=== PATIENT | male | born 1955 | race Caucasian/White ===

== ENCOUNTER 2021-01-16 15:09 | Inpatient (IN) | payer BC ==
[~2021-01-16] VITALS: Ht 185.4 cm; Wt 100.0 kg
[~2021-01-16 15:09] MED LIST: ATOR80TA PO; CARV3.12 PO; CLOP75TA15 PO; INSU100V46 SQ; INSU100V9 SQ; METF-438 PO; NITR0.4T51 SL
[2021-01-16] MEDS ORDERED: normal saline 1000ML IV soln IVB ONE ×2 (15:30→17:15)
[2021-01-16] MEDS ORDERED: dexamethasone sod phosphate 10mg/ml inj IV STA (15:41)
[2021-01-16] MEDS ORDERED: dexamethasone inj 8 MG in normal saline 50ml IV soln 50 ML IV ONE (16:00)
[2021-01-16 16:19] LABS: BASOPHILS % (AUTO) 0.1 % (0-1); EOSINOPHILS % (AUTO) 0.1 % (0-6); HEMATOCRIT 43.3 % (42.0-52.0); HEMOGLOBIN 14.2 g/dl (14.0-17.9); LYMPHOCYTES # (AUTO) 0.2 X10'3 (1.1-4.8); LYMPHOCYTES % (AUTO) 4.3 % (21-51); MEAN CORPUSCULAR HEMOGLOBIN 30.3 PG (27.0-31.0); MEAN CORPUSCULAR HGB CONC 32.9 g/dL (33.0-36.5); MEAN CORPUSCULAR VOLUME 91.9 FL (78-98); MEAN PLATELET VOLUME 8.4 FL (7.4-10.4); MONOCYTES # (AUTO) 0.5 X10'3 (0-0.9); MONOCYTES % (AUTO) 10.4 % (2-12); NEUTROPHILS # (AUTO) 4.4 X10'3 (1.8-7.7); NEUTROPHILS % (AUTO) 85.1 % (42-75); PLATELET COUNT 137 X10'3 (140-440); RED BLOOD COUNT 4.71 X10'6 (4.70-6.10); RED CELL DISTRIBUTION WIDTH 15.2 % (11.5-14.5); WHITE BLOOD COUNT 5.1 X10'3 (4.5-11.0)
[2021-01-16 16:22] LABS: ALANINE AMINOTRANSFERASE 39 U/L (12-78); ALBUMIN 3.2 G/DL (3.4-5.0); ALBUMIN/GLOBULIN RATIO 0.8 (1.1-1.5); ALKALINE PHOSPHATASE 85 IU/L (46-116); ANION GAP 7 (8-16); ASPARTATE AMINO TRANSFERASE 25 U/L (10-37); BILIRUBIN,TOTAL 0.2 MG/DL (0.1-1.0); BLOOD UREA NITROGEN 32 MG/DL (7-18); BUN/CREATININE RATIO 28.8 (5.4-32.0); CALCIUM 7.6 MG/DL (8.5-10.1); CHLORIDE 101 MMOL/L (99-107); CREATININE 1.11 MG/DL (0.60-1.10); GLUCOSE 259 MG/DL (70-104); POTASSIUM 5.3 MMOL/L (3.5-5.1); SODIUM 134 MMOL/L (135-145); TOTAL CARBON DIOXIDE 25.6 MMOL/L (24-32); eGFR 66 ML/MIN
[2021-01-16] MEDS ORDERED: azithromycin/NS 500mg/250ml 250 ML IV ONE (16:25)
[2021-01-16] MEDS ORDERED: CefTRIAXone 2gm/D5W 50ml BAG 50 ML IV ONE (16:25)
[2021-01-16] MEDS ORDERED: acetaminophen 325mg tablet PO STA (16:25)
[2021-01-16 16:29] LABS: C-REACTIVE PROTEIN 6.91 MG/DL (0.0-0.5)
[2021-01-16 16:32] LABS: D-DIMER 0.46 MG/L FEU (0-0.50)
[2021-01-16 17:10] LABS: ABG BASE EXCESS -5.6 mmol/L (-2.0-2.0); ABG HCO3 23.8 mmol/L (22.0-26.0); ABG OXYGEN SATURATION 98.3 % (94-97); ABG PCO2 (T) 64.5 mmHg (35.0-48.0); ABG PO2 (T) 181.1 mmHg (75.0-100.0); ALLEN'S TEST POSITIVE; FCOHb 0.5 % (0.0-3.9); FLOW 10 L/min; FMetHb 0.3 % (0.0-1.5); FO2Hb 97.5 % (94-97); TOTAL HEMOGLOBIN 13.6 G/dl (14.0-18.0)
[2021-01-16] MEDS ORDERED: magnesium 4gm in 100ml NS 100 ML IV PRN (17:10)
[2021-01-16] MEDS ORDERED: enoxaparin 40mg/0.4ml syringe SUBCUT SCH (17:10)
[2021-01-16] MEDS ORDERED: magnesium Cl slow-release 64mg tablet PO PRN (17:10)
[2021-01-16] MEDS ORDERED: magnesium 2GM in 50ml NS 50 ML IV PRN (17:10)
[2021-01-16] MEDS ORDERED: ondansetron/PF 4mg/2ml inj IV PRN (17:10)
[2021-01-16] MEDS: normal saline 1000ml 1,000 ML IV SCH (19:17)
[2021-01-16] MEDS: enoxaparin 40mg/0.4ml syringe SUBCUT SCH (19:30)
--- NOTE | 2021-01-16 20:00 | NUR ---
Recieved pt in bed hob elevated 40 degrees . o2 sats 93 % on bi pap . plan of care updated . pt currently asking for a warm blanket . Brought to bedside . Agree with head to toe assessment with RN AB. iv site patent without incident . will continue to monitor and reassess
--- NOTE | 2021-01-16 20:34 | NUR ---
pt daughter called to check on pt. gave an update.
[2021-01-16 22:05] LABS: ABG BASE EXCESS -6.5 mmol/L (-2.0-2.0); ABG HCO3 21.5 mmol/L (22.0-26.0); ABG OXYGEN SATURATION 93.7 % (94-97); ABG PCO2 (T) 52.2 mmHg (35.0-48.0); ALLEN'S TEST POSITIVE; FCOHb 0.6 % (0.0-3.9); FMetHb 0.3 % (0.0-1.5); FO2Hb 92.9 % (94-97); PATIENT TEMPERATURE 36.7; RESPIRATORY RATE 20 b/min; TOTAL HEMOGLOBIN 13.6 G/dl (14.0-18.0)
[2021-01-16] MEDS ORDERED: enoxaparin 30mg/0.3ml syringe SUBCUT ONE (22:20)
--- NOTE | 2021-01-17 01:00 | NUR ---
PT ON HOSPITAL BED FROM [facility]
[2021-01-17] MEDS: methylPREDNISolone sod succ 125mg/2ml vial IV SCH ×3 (01:18→17:01)
[2021-01-17] MEDS: acetaminophen 325mg tablet PO PRN ×2 (01:33→22:58)
[2021-01-17 04:43] LABS: BASOPHILS % (AUTO) 0.2 % (0-1); EOSINOPHILS % (AUTO) 0 % (0-6); HEMATOCRIT 41.2 % (42.0-52.0); HEMOGLOBIN 13.6 g/dl (14.0-17.9); LYMPHOCYTES # (AUTO) 0.3 X10'3 (1.1-4.8); MEAN CORPUSCULAR HEMOGLOBIN 30.8 PG (27.0-31.0); MEAN CORPUSCULAR HGB CONC 33.1 g/dL (33.0-36.5); MEAN CORPUSCULAR VOLUME 93.1 FL (78-98); MEAN PLATELET VOLUME 8.3 FL (7.4-10.4); MONOCYTES # (AUTO) 0.2 X10'3 (0-0.9); MONOCYTES % (AUTO) 5.3 % (2-12); NEUTROPHILS # (AUTO) 3.6 X10'3 (1.8-7.7); NEUTROPHILS % (AUTO) 86.5 % (42-75); PLATELET COUNT 123 X10'3 (140-440); RED BLOOD COUNT 4.42 X10'6 (4.70-6.10); WHITE BLOOD COUNT 4.2 X10'3 (4.5-11.0)
[2021-01-17 05:03] LABS: ANION GAP 10 (8-16); BLOOD UREA NITROGEN 32 MG/DL (7-18); BUN/CREATININE RATIO 30.8 (5.4-32.0); C-REACTIVE PROTEIN 5.86 MG/DL (0.0-0.5); CALCIUM 7.1 MG/DL (8.5-10.1); CHLORIDE 105 MMOL/L (99-107); CREATININE 1.04 MG/DL (0.60-1.10); GLUCOSE 213 MG/DL (70-104); MAGNESIUM 1.9 MG/DL (1.5-2.4); POTASSIUM 5.1 MMOL/L (3.5-5.1); SODIUM 138 MMOL/L (135-145); TOTAL CARBON DIOXIDE 23.1 MMOL/L (24-32); eGFR 71 ML/MIN
[2021-01-17 05:04] LABS: D-DIMER 0.38 MG/L FEU (0-0.50)
[2021-01-17] MEDS: normal saline 1000ml 1,000 ML IV SCH (06:01)
[2021-01-17] MEDS: enoxaparin 40mg/0.4ml syringe SUBCUT SCH (09:28)
--- NOTE | 2021-01-17 10:00 | NUR ---
TOLERATING BIBAP WELL. NO ACUTE DISTRESS NOTED AT THIS TIME
--- NOTE | 2021-01-17 13:50 | NUR ---
PT WAS PLACED ON 6L/MIN NC TO EAT LUNCH. TOLERATING WELL. 02 SAT 94-95%
--- NOTE | 2021-01-17 13:54 | NUR ---
PT ON 90-92% WHILE EATING
[2021-01-17 15:36] LABS: ABG BASE EXCESS -5.2 mmol/L (-2.0-2.0); ABG HCO3 21.2 mmol/L (22.0-26.0); ABG OXYGEN SATURATION 94.8 % (94-97); ABG PCO2 (T) 44.3 mmHg (35.0-48.0); ABG PO2 (T) 83.6 mmHg (75.0-100.0); ALLEN'S TEST POSITIVE; FCOHb 0.4 % (0.0-3.9); FLOW 6 L/min; FMetHb 0.3 % (0.0-1.5); FO2Hb 94.1 % (94-97); TOTAL HEMOGLOBIN 13.2 G/dl (14.0-18.0)
[2021-01-17] MEDS ORDERED: nitroGLYCERIN 0.4mg SUBLingual tab SL PRN (19:20)
--- NOTE | 2021-01-17 20:25 | NUR ---
Pts , jb, calling (from her room in this hospital). phone place din room and call connected to him. pt is awaiting ipa. is on hospital bed.
[2021-01-17] MEDS: clopidogrel 75mg tablet PO SCH (20:55)
[2021-01-17] MEDS: atorvastatin 20mg tablet PO SCH (20:56)
[2021-01-17] MEDS: carVEDilol 3.125mg tablet PO SCH (20:56)
[2021-01-18] MEDS: methylPREDNISolone sod succ 125mg/2ml vial IV SCH ×2 (01:57→08:42)
[2021-01-18 02:21] LABS: ALBUMIN 2.9 G/DL (3.4-5.0); ANION GAP 7 (8-16); BLOOD UREA NITROGEN 29 MG/DL (7-18); BUN/CREATININE RATIO 26.9 (5.4-32.0); C-REACTIVE PROTEIN 3.35 MG/DL (0.0-0.5); CALCIUM 7.4 MG/DL (8.5-10.1); CHLORIDE 106 MMOL/L (99-107); CREATININE 1.08 MG/DL (0.60-1.10); GLUCOSE 334 MG/DL (70-104); MAGNESIUM 1.9 MG/DL (1.5-2.4); POTASSIUM 4.8 MMOL/L (3.5-5.1); SODIUM 137 MMOL/L (135-145); TOTAL CARBON DIOXIDE 24.1 MMOL/L (24-32); eGFR 68 ML/MIN
[2021-01-18 02:35] LABS: BASOPHILS % (AUTO) 0.1 % (0-1); EOSINOPHILS % (AUTO) 0 % (0-6); HEMATOCRIT 36.9 % (42.0-52.0); HEMOGLOBIN 12.5 g/dl (14.0-17.9); LYMPHOCYTES # (AUTO) 0.3 X10'3 (1.1-4.8); LYMPHOCYTES % (AUTO) 4.1 % (21-51); MEAN CORPUSCULAR HEMOGLOBIN 30.9 PG (27.0-31.0); MEAN CORPUSCULAR VOLUME 91.1 FL (78-98); MEAN PLATELET VOLUME 8.5 FL (7.4-10.4); MONOCYTES # (AUTO) 0.7 X10'3 (0-0.9); MONOCYTES % (AUTO) 8.4 % (2-12); NEUTROPHILS # (AUTO) 7.5 X10'3 (1.8-7.7); NEUTROPHILS % (AUTO) 87.4 % (42-75); PLATELET COUNT 152 X10'3 (140-440); RED BLOOD COUNT 4.05 X10'6 (4.70-6.10); RED CELL DISTRIBUTION WIDTH 15.1 % (11.5-14.5); WHITE BLOOD COUNT 8.5 X10'3 (4.5-11.0)
[2021-01-18] MEDS ORDERED: glucagon, human recombinant 1mg kit SUBCUT PRN (07:50)
[2021-01-18] MEDS ORDERED: MESSAGE TO PHARMACY PO ONE (07:50)
[2021-01-18] MEDS ORDERED: dextrose 50%-water 50ml dispensing syringe IV PRN ×2 (07:50)
[2021-01-18] MEDS ORDERED: dextrose ORAL solution 15 GM/59 ML bottle PO PRN ×2 (07:50)
[2021-01-18] MEDS: clopidogrel 75mg tablet PO SCH (08:43)
[2021-01-18] MEDS: enoxaparin 40mg/0.4ml syringe SUBCUT SCH (08:43)
[2021-01-18] MEDS: carVEDilol 3.125mg tablet PO SCH ×2 (08:43→20:31)
[2021-01-18] MEDS: insulin Lispro (HumaLOG) vial - multi-dose SQ SCH ×2 (09:35→21:57)
--- NOTE | 2021-01-18 11:30 | NUR ---
Patient in room COVID 04. I have received report from ishmael BUI and had the opportunity to ask questions and assume patient care.
[2021-01-18 15:00] VITALS: BP 148/72
[2021-01-18] MEDS: methylPREDNISolone sod succ/PF 40mg inj. IV SCH (16:38)
[2021-01-18 18:00] VITALS: BP 134/78
--- NOTE | 2021-01-18 18:05 | NUR ---
Patient in room COVID 04. I have received report from danyell stahl and had the opportunity to ask questions and assume patient care.
--- NOTE | 2021-01-18 18:22 | NUR ---
Problems reprioritized. Patient report given, questions answered & plan of care reviewed with Edith Srivastava.
[2021-01-18] MEDS: atorvastatin 20mg tablet PO SCH (20:32)
[2021-01-18] MEDS: acetaminophen 325mg tablet PO PRN (20:47)
[2021-01-18] MEDS: insulin glargine (Lantus) pen - multi-dose SQ SCH (21:55)
[2021-01-18 22:00] VITALS: BP 120/80
[2021-01-19 02:00] VITALS: BP 128/57
[2021-01-19 06:00] VITALS: BP 146/79
--- NOTE | 2021-01-19 06:00 | NUR ---
Patient in room COVID 04. I have received report from Edith BUI and had the opportunity to ask questions and assume patient care.
[2021-01-19] MEDS: clopidogrel 75mg tablet PO SCH (08:03)
[2021-01-19] MEDS: carVEDilol 3.125mg tablet PO SCH ×2 (08:03→19:52)
[2021-01-19 08:38] LABS: BASOPHILS % (AUTO) 0 % (0-1); EOSINOPHILS % (AUTO) 0 % (0-6); HEMATOCRIT 43.4 % (42.0-52.0); HEMOGLOBIN 14.6 g/dl (14.0-17.9); LYMPHOCYTES # (AUTO) 0.3 X10'3 (1.1-4.8); MEAN CORPUSCULAR HEMOGLOBIN 30.5 PG (27.0-31.0); MEAN CORPUSCULAR HGB CONC 33.6 g/dL (33.0-36.5); MEAN CORPUSCULAR VOLUME 90.6 FL (78-98); MEAN PLATELET VOLUME 8.2 FL (7.4-10.4); MONOCYTES # (AUTO) 0.7 X10'3 (0-0.9); MONOCYTES % (AUTO) 6.6 % (2-12); NEUTROPHILS # (AUTO) 9.3 X10'3 (1.8-7.7); NEUTROPHILS % (AUTO) 90.4 % (42-75); PLATELET COUNT 217 X10'3 (140-440); RED BLOOD COUNT 4.79 X10'6 (4.70-6.10); RED CELL DISTRIBUTION WIDTH 15.2 % (11.5-14.5); WHITE BLOOD COUNT 10.2 X10'3 (4.5-11.0)
[2021-01-19 08:53] LABS: ALBUMIN 3.3 G/DL (3.4-5.0); ANION GAP 9 (8-16); BLOOD UREA NITROGEN 20 MG/DL (7-18); BUN/CREATININE RATIO 25.6 (5.4-32.0); C-REACTIVE PROTEIN 6.32 MG/DL (0.0-0.5); CHLORIDE 102 MMOL/L (99-107); CREATININE 0.78 MG/DL (0.60-1.10); GLUCOSE 239 MG/DL (70-104); MAGNESIUM 2.2 MG/DL (1.5-2.4); SODIUM 139 MMOL/L (135-145); TOTAL CARBON DIOXIDE 28.1 MMOL/L (24-32); eGFR > 90 ML/MIN
[2021-01-19] MEDS: insulin Lispro (HumaLOG) vial - multi-dose SQ SCH ×2 (09:38→21:53)
[2021-01-19] MEDS: methylPREDNISolone sod succ/PF 40mg inj. IV SCH ×4 (09:40→23:31)
[2021-01-19] MEDS: enoxaparin 40mg/0.4ml syringe SUBCUT SCH (09:40)
[2021-01-19] MEDS: acetaminophen 325mg tablet PO PRN ×2 (10:43→19:54)
[2021-01-19 11:00] VITALS: BP 174/88
--- NOTE | 2021-01-19 11:23 | NUR ---
PAGER ID: [phone] MESSAGE: [facility] room 4B has a BP of 174/88. Rupali ext [phone]
[2021-01-19] MEDS ORDERED: REMDESIVIR INJ 200 MG in normal saline 100ml IV soln 60 ML IV ONE (12:00)
--- NOTE | 2021-01-19 12:04 | NUR ---
DM Consult: Pt admit DX COVID-19 hx DM A1C 8.0. DM ed deferred at this time. Will remain available. Addendum: 01/19/21 at [address] Amended: Links added.
[2021-01-19 15:00] VITALS: BP 143/75
[2021-01-19 18:00] VITALS: BP 132/88
--- NOTE | 2021-01-19 18:32 | NUR ---
Problems reprioritized. Patient report given, questions answered & plan of care reviewed with Jagdeep BUI. Addendum: 01/19/21 at 1836 by Rupali Bearden RN correction, report was given to Edith BUI
[2021-01-19] MEDS: atorvastatin 20mg tablet PO SCH (19:53)
[2021-01-19] MEDS: ALBUTEROL INHALER 1 PUFF/90 MCG INHALER IH PRN (21:48)
[2021-01-19] MEDS: insulin glargine (Lantus) pen - multi-dose SQ SCH (21:52)
[2021-01-19 22:00] VITALS: BP 140/78
[2021-01-20 02:00] VITALS: BP 142/81
[2021-01-20] MEDS: acetaminophen 325mg tablet PO PRN (02:56)
[2021-01-20 05:58] LABS: BASOPHILS % (AUTO) 0 % (0-1); EOSINOPHILS % (AUTO) 0 % (0-6); HEMATOCRIT 43.4 % (42.0-52.0); HEMOGLOBIN 14.7 g/dl (14.0-17.9); LYMPHOCYTES # (AUTO) 0.3 X10'3 (1.1-4.8); LYMPHOCYTES % (AUTO) 3.3 % (21-51); MEAN CORPUSCULAR HEMOGLOBIN 30.7 PG (27.0-31.0); MEAN CORPUSCULAR HGB CONC 33.8 g/dL (33.0-36.5); MEAN CORPUSCULAR VOLUME 90.8 FL (78-98); MEAN PLATELET VOLUME 8.2 FL (7.4-10.4); MONOCYTES # (AUTO) 0.4 X10'3 (0-0.9); MONOCYTES % (AUTO) 3.9 % (2-12); NEUTROPHILS # (AUTO) 8.6 X10'3 (1.8-7.7); NEUTROPHILS % (AUTO) 92.8 % (42-75); PLATELET COUNT 193 X10'3 (140-440); RED BLOOD COUNT 4.78 X10'6 (4.70-6.10); WHITE BLOOD COUNT 9.3 X10'3 (4.5-11.0)
[2021-01-20 06:03] LABS: ALBUMIN 2.6 G/DL (3.4-5.0); ANION GAP 6 (8-16); BLOOD UREA NITROGEN 22 MG/DL (7-18); BUN/CREATININE RATIO 25.9 (5.4-32.0); C-REACTIVE PROTEIN 14.33 MG/DL (0.0-0.5); CHLORIDE 99 MMOL/L (99-107); CREATININE 0.85 MG/DL (0.60-1.10); GLUCOSE 250 MG/DL (70-104); MAGNESIUM 2.1 MG/DL (1.5-2.4); POTASSIUM 5.1 MMOL/L (3.5-5.1); SODIUM 134 MMOL/L (135-145); TOTAL CARBON DIOXIDE 28.8 MMOL/L (24-32); eGFR 90 ML/MIN
--- NOTE | 2021-01-20 08:19 | NUR ---
Problems reprioritized. Patient report given, questions answered & plan of care reviewed with Gen BUI.
[2021-01-20] MEDS: methylPREDNISolone sod succ/PF 40mg inj. IV SCH ×2 (09:01→16:06)
[2021-01-20] MEDS: carVEDilol 3.125mg tablet PO SCH ×2 (09:02→20:01)
[2021-01-20] MEDS: clopidogrel 75mg tablet PO SCH (09:02)
[2021-01-20] MEDS: enoxaparin 40mg/0.4ml syringe SUBCUT SCH ×2 (09:02→20:01)
[2021-01-20] MEDS: REMDESIVIR INJ 100 MG in normal saline 100ml IV soln 80 ML IV SCH (09:03)
[2021-01-20 12:14] VITALS: BP 109/61
[2021-01-20] MEDS: insulin Lispro (HumaLOG) vial - multi-dose SQ SCH ×3 (12:59→21:59)
--- NOTE | 2021-01-20 13:32 | NUR ---
Initial: Pt admitted w/ SOB and increasing confusion, initially requiring BiPAP. Pt now on NC, able to eat well w/ 100% of meals today and 01/18 on CCHO diet. Pt able to feed self. No N/V/D noted, LBM 01/19. No nutritional diagnosis at this time, will continue to monitor need for ONS if PO intake declines. Recs: 1. Continue CCHO diet as tolerated 2. Bowel care per rx 3. Weekly wts Addendum: 01/20/21 at [address] Amended: Links added.
[2021-01-20 15:31] VITALS: BP 99/52
[2021-01-20 18:00] VITALS: BP 129/76
--- NOTE | 2021-01-20 18:00 | NUR ---
Patient in room COVID 04. I have received report from ana BUI and had the opportunity to ask questions and assume patient care.
[2021-01-20] MEDS: atorvastatin 20mg tablet PO SCH (20:01)
[2021-01-20 22:00] VITALS: BP 111/78
[2021-01-20] MEDS: insulin glargine (Lantus) pen - multi-dose SQ SCH (22:00)
[2021-01-20] MEDS: ALBUTEROL INHALER 1 PUFF/90 MCG INHALER IH PRN (22:00)
--- NOTE | 2021-01-20 23:52 | NUR ---
incorrect typing for hourly rounding bpatient is not on a breathing apparatus other than the 6L NC. RT notified patietn frequtnyl drops to 89% , albuterol treatment repositioning and deep breathing exercises practiced however it seems to revert back to the lower 90s high 80s. pending reposnse. will cont. to monitor. patient is also on puree diet carb controlled.
[2021-01-21] MEDS: methylPREDNISolone sod succ/PF 40mg inj. IV SCH ×4 (00:16→23:01)
--- NOTE | 2021-01-21 01:40 | NUR ---
patient saturates at 88-93% on 6L hum. RT notifeid that patient was given albuterol treatment, practices deep breathing exercises, changes positions, I sat him up and still saturates at 91%. Recommendation placing patient on high flow nasal cannula..pending response
[2021-01-21 02:44] VITALS: BP 111/59
[2021-01-21 06:00] VITALS: BP 140/75
--- NOTE | 2021-01-21 07:01 | NUR ---
Patient in room COVID 04. I have received report from Edith BUI and had the opportunity to ask questions and assume patient care.
[2021-01-21 07:08] LABS: BASOPHILS % (AUTO) 0.1 % (0-1); EOSINOPHILS % (AUTO) 0 % (0-6); HEMATOCRIT 43.6 % (42.0-52.0); HEMOGLOBIN 14.6 g/dl (14.0-17.9); LYMPHOCYTES # (AUTO) 0.3 X10'3 (1.1-4.8); MEAN CORPUSCULAR HEMOGLOBIN 30.5 PG (27.0-31.0); MEAN CORPUSCULAR HGB CONC 33.5 g/dL (33.0-36.5); MEAN CORPUSCULAR VOLUME 91.2 FL (78-98); MEAN PLATELET VOLUME 8.1 FL (7.4-10.4); MONOCYTES # (AUTO) 0.5 X10'3 (0-0.9); MONOCYTES % (AUTO) 4.5 % (2-12); NEUTROPHILS # (AUTO) 10.6 X10'3 (1.8-7.7); NEUTROPHILS % (AUTO) 92.4 % (42-75); PLATELET COUNT 280 X10'3 (140-440); RED BLOOD COUNT 4.78 X10'6 (4.70-6.10); RED CELL DISTRIBUTION WIDTH 15.4 % (11.5-14.5); WHITE BLOOD COUNT 11.5 X10'3 (4.5-11.0)
[2021-01-21 07:16] LABS: D-DIMER 0.81 MG/L FEU (0-0.50)
[2021-01-21] MEDS: REMDESIVIR INJ 100 MG in normal saline 100ml IV soln 80 ML IV SCH (07:33)
[2021-01-21] MEDS: clopidogrel 75mg tablet PO SCH (07:33)
[2021-01-21] MEDS: enoxaparin 40mg/0.4ml syringe SUBCUT SCH ×2 (07:34→20:10)
[2021-01-21] MEDS: carVEDilol 3.125mg tablet PO SCH ×2 (07:34→20:09)
[2021-01-21 07:56] LABS: ALBUMIN 2.6 G/DL (3.4-5.0); ANION GAP 9 (8-16); BLOOD UREA NITROGEN 34 MG/DL (7-18); BUN/CREATININE RATIO 39.1 (5.4-32.0); C-REACTIVE PROTEIN 8.96 MG/DL (0.0-0.5); CALCIUM 7.7 MG/DL (8.5-10.1); CHLORIDE 104 MMOL/L (99-107); CREATININE 0.87 MG/DL (0.60-1.10); GLUCOSE 289 MG/DL (70-104); MAGNESIUM 2.5 MG/DL (1.5-2.4); POTASSIUM 4.9 MMOL/L (3.5-5.1); SODIUM 141 MMOL/L (135-145); TOTAL CARBON DIOXIDE 28.1 MMOL/L (24-32); eGFR 88 ML/MIN
[2021-01-21] MEDS: insulin Lispro (HumaLOG) vial - multi-dose SQ SCH ×3 (10:44→20:12)
[2021-01-21 11:00] VITALS: BP 105/60
[2021-01-21 15:00] VITALS: BP 122/67
--- NOTE | 2021-01-21 18:28 | NUR ---
Problems reprioritized. Patient report given, questions answered & plan of care reviewed with Surinder BUI.
[2021-01-21 19:00] VITALS: BP 109/60
[2021-01-21] MEDS: atorvastatin 20mg tablet PO SCH (20:09)
[2021-01-21] MEDS: acetaminophen 325mg tablet PO PRN (20:10)
[2021-01-21] MEDS: insulin glargine (Lantus) pen - multi-dose SQ SCH (21:10)
[2021-01-21 23:00] VITALS: BP 128/60
[2021-01-22 02:00] VITALS: BP 116/58
[2021-01-22 04:00] VITALS: BP 116/58
[2021-01-22 06:00] VITALS: BP 139/77
--- NOTE | 2021-01-22 06:52 | NUR ---
Problems reprioritized. Patient report given, questions answered & plan of care reviewed with HAO Cline.
[2021-01-22 07:03] LABS: D-DIMER 0.61 MG/L FEU (0-0.50)
[2021-01-22 07:13] LABS: C-REACTIVE PROTEIN 4.09 MG/DL (0.0-0.5); MAGNESIUM 2.4 MG/DL (1.5-2.4)
--- NOTE | 2021-01-22 08:00 | NUR ---
spoke to pt for a while, his spirits olman fitzpatrick he says" im not a cuong who likes being in the hospital, i like to be outside" we shared some outdoor stories for a bit and discussed the power of the mind and he cheered up.
[2021-01-22] MEDS: enoxaparin 40mg/0.4ml syringe SUBCUT SCH ×2 (08:57→20:00)
[2021-01-22] MEDS: carVEDilol 3.125mg tablet PO SCH ×2 (08:57→22:08)
[2021-01-22] MEDS: clopidogrel 75mg tablet PO SCH (08:57)
[2021-01-22] MEDS: methylPREDNISolone sod succ/PF 40mg inj. IV SCH ×2 (08:57→18:24)
[2021-01-22] MEDS: REMDESIVIR INJ 100 MG in normal saline 100ml IV soln 80 ML IV SCH (08:58)
--- NOTE | 2021-01-22 09:00 | NUR ---
edu about proning. pt reluctant but agreed. neftaly well. provided pillows for comfort. sats 96, prev 92%
[2021-01-22] MEDS: insulin Lispro (HumaLOG) vial - multi-dose SQ SCH ×2 (09:28→14:19)
[2021-01-22 11:00] VITALS: BP 136/45
--- NOTE | 2021-01-22 11:30 | NUR ---
prone until now, sat up looking out window, no distress
--- NOTE | 2021-01-22 13:00 | NUR ---
Advise prone afte rmeal. pt reluctant again, " my old rib injury hurts" but agreed to prone with pillows
--- NOTE | 2021-01-22 15:00 | NUR ---
2 hrs on his mostly abd side sidelying and a little full abd
--- NOTE | 2021-01-22 18:13 | NUR ---
pt ate 100% meals this am and noon
[2021-01-22 19:00] VITALS: BP 131/65
--- NOTE | 2021-01-22 19:13 | NUR ---
Problems reprioritized. Patient report given, questions answered & plan of care reviewed with Teresa BUI.
[2021-01-22] MEDS: atorvastatin 20mg tablet PO SCH (22:08)
[2021-01-22] MEDS: insulin glargine (Lantus) pen - multi-dose SQ SCH (22:42)
[2021-01-22 23:00] VITALS: BP 131/73
[2021-01-23] MEDS: methylPREDNISolone sod succ/PF 40mg inj. IV SCH ×3 (00:13→16:35)
[2021-01-23 03:00] VITALS: BP 121/72
[2021-01-23 06:00] VITALS: BP 157/77
--- NOTE | 2021-01-23 06:50 | NUR ---
Patient in room COVID 04. I have received report from HAO Moore and had the opportunity to ask questions and assume patient care.
[2021-01-23 07:52] LABS: BASOPHILS % (AUTO) 0.1 % (0-1); EOSINOPHILS % (AUTO) 0 % (0-6); HEMATOCRIT 43.2 % (42.0-52.0); HEMOGLOBIN 14.2 g/dl (14.0-17.9); LYMPHOCYTES # (AUTO) 0.4 X10'3 (1.1-4.8); LYMPHOCYTES % (AUTO) 3.2 % (21-51); MEAN CORPUSCULAR HEMOGLOBIN 30.3 PG (27.0-31.0); MEAN CORPUSCULAR HGB CONC 32.9 g/dL (33.0-36.5); MEAN CORPUSCULAR VOLUME 91.9 FL (78-98); MEAN PLATELET VOLUME 7.9 FL (7.4-10.4); MONOCYTES # (AUTO) 0.8 X10'3 (0-0.9); MONOCYTES % (AUTO) 6.3 % (2-12); NEUTROPHILS # (AUTO) 11.1 X10'3 (1.8-7.7); NEUTROPHILS % (AUTO) 90.4 % (42-75); PLATELET COUNT 378 X10'3 (140-440); RED CELL DISTRIBUTION WIDTH 15.3 % (11.5-14.5); WHITE BLOOD COUNT 12.3 X10'3 (4.5-11.0)
[2021-01-23 08:10] LABS: ALANINE AMINOTRANSFERASE 104 U/L (12-78); ALBUMIN 2.8 G/DL (3.4-5.0); ALBUMIN/GLOBULIN RATIO 0.8 (1.1-1.5); ALKALINE PHOSPHATASE 87 IU/L (46-116); ANION GAP 6 (8-16); ASPARTATE AMINO TRANSFERASE 31 U/L (10-37); BILIRUBIN,TOTAL 0.5 MG/DL (0.1-1.0); BLOOD UREA NITROGEN 29 MG/DL (7-18); BUN/CREATININE RATIO 37.2 (5.4-32.0); C-REACTIVE PROTEIN 2.42 MG/DL (0.0-0.5); CALCIUM 7.9 MG/DL (8.5-10.1); CHLORIDE 104 MMOL/L (99-107); CREATININE 0.78 MG/DL (0.60-1.10); GLUCOSE 236 MG/DL (70-104); LACTATE DEHYDROGENASE 453 U/L (85-227); PHOSPHORUS 3.9 MG/DL (2.3-4.5); SODIUM 141 MMOL/L (135-145); TOTAL CARBON DIOXIDE 31.3 MMOL/L (24-32); TOTAL PROTEIN 6.5 G/DL (6.4-8.2); eGFR > 90 ML/MIN
[2021-01-23] MEDS: REMDESIVIR INJ 100 MG in normal saline 100ml IV soln 80 ML IV SCH (10:25)
[2021-01-23] MEDS: enoxaparin 40mg/0.4ml syringe SUBCUT SCH ×2 (10:26→19:18)
[2021-01-23] MEDS: carVEDilol 3.125mg tablet PO SCH ×2 (10:26→19:17)
[2021-01-23] MEDS: clopidogrel 75mg tablet PO SCH (10:27)
[2021-01-23] MEDS: insulin Lispro (HumaLOG) vial - multi-dose SQ SCH ×3 (10:29→19:28)
[2021-01-23 11:00] VITALS: BP 132/73
[2021-01-23 14:00] VITALS: BP 119/54
--- NOTE | 2021-01-23 18:40 | NUR ---
Problems reprioritized. Patient report given, questions answered & plan of care reviewed with HAO Montesinos.
[2021-01-23 19:00] VITALS: BP 141/77
[2021-01-23] MEDS: atorvastatin 20mg tablet PO SCH (21:50)
[2021-01-23] MEDS: insulin glargine (Lantus) pen - multi-dose SQ SCH (21:54)
[2021-01-24] MEDS: methylPREDNISolone sod succ/PF 40mg inj. IV SCH ×3 (00:15→19:22)
[2021-01-24 06:00] VITALS: BP 130/71
--- NOTE | 2021-01-24 06:46 | NUR ---
Problems reprioritized. Patient report given, questions answered & plan of care reviewed with ZARIA. Addendum: 01/24/21 at 0646 by Gerardo Hoffman RN Amended: Links added.
--- NOTE | 2021-01-24 06:52 | NUR ---
Patient in room COVID 04. I have received report from Atif Montesinos and had the opportunity to ask questions and assume patient care.
[2021-01-24] MEDS: carVEDilol 3.125mg tablet PO SCH ×2 (07:46→19:22)
[2021-01-24] MEDS: enoxaparin 40mg/0.4ml syringe SUBCUT SCH ×2 (07:47→19:23)
[2021-01-24 07:56] LABS: BASOPHILS % (AUTO) 0.1 % (0-1); EOSINOPHILS % (AUTO) 0 % (0-6); HEMATOCRIT 43.4 % (42.0-52.0); HEMOGLOBIN 14.4 g/dl (14.0-17.9); LYMPHOCYTES # (AUTO) 0.4 X10'3 (1.1-4.8); MEAN CORPUSCULAR HEMOGLOBIN 30.4 PG (27.0-31.0); MEAN CORPUSCULAR HGB CONC 33.1 g/dL (33.0-36.5); MEAN CORPUSCULAR VOLUME 91.9 FL (78-98); MEAN PLATELET VOLUME 7.5 FL (7.4-10.4); MONOCYTES # (AUTO) 0.7 X10'3 (0-0.9); MONOCYTES % (AUTO) 6.1 % (2-12); NEUTROPHILS # (AUTO) 11.1 X10'3 (1.8-7.7); NEUTROPHILS % (AUTO) 90.8 % (42-75); PLATELET COUNT 375 X10'3 (140-440); RED BLOOD COUNT 4.72 X10'6 (4.70-6.10); RED CELL DISTRIBUTION WIDTH 14.7 % (11.5-14.5); WHITE BLOOD COUNT 12.2 X10'3 (4.5-11.0)
[2021-01-24 08:10] LABS: D-DIMER 0.64 MG/L FEU (0-0.50)
[2021-01-24 08:17] LABS: ALANINE AMINOTRANSFERASE 86 U/L (12-78); ALBUMIN 2.6 G/DL (3.4-5.0); ALBUMIN/GLOBULIN RATIO 0.7 (1.1-1.5); ALKALINE PHOSPHATASE 76 IU/L (46-116); ANION GAP 5 (8-16); ASPARTATE AMINO TRANSFERASE 24 U/L (10-37); BILIRUBIN,TOTAL 0.6 MG/DL (0.1-1.0); BLOOD UREA NITROGEN 26 MG/DL (7-18); BUN/CREATININE RATIO 41.3 (5.4-32.0); C-REACTIVE PROTEIN 1.33 MG/DL (0.0-0.5); CALCIUM 7.7 MG/DL (8.5-10.1); CHLORIDE 105 MMOL/L (99-107); CREATININE 0.63 MG/DL (0.60-1.10); GLUCOSE 107 MG/DL (70-104); LACTATE DEHYDROGENASE 235 U/L (85-227); PHOSPHORUS 4.1 MG/DL (2.3-4.5); POTASSIUM 4.9 MMOL/L (3.5-5.1); SODIUM 142 MMOL/L (135-145); TOTAL CARBON DIOXIDE 31.8 MMOL/L (24-32); TOTAL PROTEIN 6.1 G/DL (6.4-8.2); eGFR > 90 ML/MIN
[2021-01-24] MEDS: clopidogrel 75mg tablet PO SCH (08:36)
[2021-01-24] MEDS: insulin Lispro (HumaLOG) vial - multi-dose SQ SCH ×3 (08:41→19:21)
[2021-01-24] MEDS: ALBUTEROL INHALER 1 PUFF/90 MCG INHALER IH PRN ×2 (09:28→16:31)
[2021-01-24 11:16] VITALS: BP 133/63
[2021-01-24 15:08] VITALS: BP 114/63
--- NOTE | 2021-01-24 18:31 | NUR ---
Patient in room COVID 04B. I have received report from HAO Masters and had the opportunity to ask questions and assume patient care.
--- NOTE | 2021-01-24 18:39 | NUR ---
Problems reprioritized. Patient report given, questions answered & plan of care reviewed with HAO Lobo.
[2021-01-24 20:00] VITALS: BP 128/65
[2021-01-24] MEDS: atorvastatin 20mg tablet PO SCH (21:33)
[2021-01-24] MEDS: insulin glargine (Lantus) pen - multi-dose SQ SCH (21:40)
[2021-01-25] VITALS: BP 126/77
[2021-01-25 05:00] VITALS: BP 118/71
--- NOTE | 2021-01-25 06:40 | NUR ---
Problems reprioritized. Patient report given, questions answered & plan of care reviewed with HAO Steel.
[2021-01-25 07:00] VITALS: BP 118/78
[2021-01-25] MEDS: carVEDilol 3.125mg tablet PO SCH ×3 (07:26→20:00)
[2021-01-25] MEDS: clopidogrel 75mg tablet PO SCH (07:26)
[2021-01-25] MEDS: methylPREDNISolone sod succ/PF 40mg inj. IV SCH ×3 (07:27→20:00)
[2021-01-25] MEDS: enoxaparin 40mg/0.4ml syringe SUBCUT SCH ×3 (07:27→20:00)
[2021-01-25 08:32] LABS: BASOPHILS % (AUTO) 0 % (0-1); EOSINOPHILS % (AUTO) 0.1 % (0-6); HEMATOCRIT 42.8 % (42.0-52.0); HEMOGLOBIN 14.3 g/dl (14.0-17.9); LYMPHOCYTES # (AUTO) 0.7 X10'3 (1.1-4.8); LYMPHOCYTES % (AUTO) 6.1 % (21-51); MEAN CORPUSCULAR HEMOGLOBIN 30.2 PG (27.0-31.0); MEAN CORPUSCULAR HGB CONC 33.5 g/dL (33.0-36.5); MEAN CORPUSCULAR VOLUME 90.1 FL (78-98); MEAN PLATELET VOLUME 7.6 FL (7.4-10.4); MONOCYTES # (AUTO) 0.9 X10'3 (0-0.9); MONOCYTES % (AUTO) 7.3 % (2-12); NEUTROPHILS # (AUTO) 10.4 X10'3 (1.8-7.7); NEUTROPHILS % (AUTO) 86.5 % (42-75); PLATELET COUNT 365 X10'3 (140-440); RED BLOOD COUNT 4.76 X10'6 (4.70-6.10); RED CELL DISTRIBUTION WIDTH 14.9 % (11.5-14.5); WHITE BLOOD COUNT 12.1 X10'3 (4.5-11.0)
[2021-01-25] MEDS: insulin Lispro (HumaLOG) vial - multi-dose SQ SCH ×2 (08:37→19:15)
[2021-01-25 08:43] LABS: D-DIMER 0.79 MG/L FEU (0-0.50)
[2021-01-25 08:50] LABS: ALANINE AMINOTRANSFERASE 82 U/L (12-78); ALBUMIN 2.6 G/DL (3.4-5.0); ALBUMIN/GLOBULIN RATIO 0.8 (1.1-1.5); ALKALINE PHOSPHATASE 79 IU/L (46-116); ANION GAP 4 (8-16); ASPARTATE AMINO TRANSFERASE 25 U/L (10-37); BILIRUBIN,TOTAL 0.7 MG/DL (0.1-1.0); BLOOD UREA NITROGEN 27 MG/DL (7-18); BUN/CREATININE RATIO 39.1 (5.4-32.0); C-REACTIVE PROTEIN 0.74 MG/DL (0.0-0.5); CALCIUM 7.8 MG/DL (8.5-10.1); CHLORIDE 104 MMOL/L (99-107); CREATININE 0.69 MG/DL (0.60-1.10); GLUCOSE 94 MG/DL (70-104); LACTATE DEHYDROGENASE 293 U/L (85-227); MAGNESIUM 1.9 MG/DL (1.5-2.4); PHOSPHORUS 3.8 MG/DL (2.3-4.5); POTASSIUM 4.9 MMOL/L (3.5-5.1); SODIUM 140 MMOL/L (135-145); TOTAL CARBON DIOXIDE 32.4 MMOL/L (24-32); eGFR > 90 ML/MIN
--- NOTE | 2021-01-25 09:43 | NUR ---
Reassessment: Pt continues to have high requirement for oxygen, still able to eat well, mostly 100% of meals on CCHO diet. Pt able to feed self. No N/V/D noted, LBM 01/23. No nutritional diagnosis at this time, will continue to monitor PO trends. Recs: 1. Continue CCHO/Puree diet as tolerated 2. Bowel care per rx 3. Weekly wts Addendum: 01/25/21 at [address] Amended: Links added.
[2021-01-25 13:00] VITALS: BP 118/65
[2021-01-25 16:00] VITALS: BP 106/55
[2021-01-25] MEDS: ALBUTEROL INHALER 1 PUFF/90 MCG INHALER IH PRN (17:21)
--- NOTE | 2021-01-25 18:19 | NUR ---
Patient in room COVID 04B. I have received report from HAO Steel and had the opportunity to ask questions and assume patient care.
--- NOTE | 2021-01-25 18:24 | NUR ---
Problems reprioritized. Patient report given, questions answered & plan of care reviewed with HAO Lobo.
[2021-01-25 20:00] VITALS: BP 108/54
[2021-01-25] MEDS: atorvastatin 20mg tablet PO SCH (21:23)
[2021-01-25] MEDS: insulin glargine (Lantus) pen - multi-dose SQ SCH (21:32)
[2021-01-26] VITALS (7 sets, daily range): BP systolic 105–133; BP diastolic 51–73
--- NOTE | 2021-01-26 06:52 | NUR ---
Problems reprioritized. Patient report given, questions answered & plan of care reviewed with HAO Andrade.
--- NOTE | 2021-01-26 07:09 | NUR ---
Patient in room COVID 04. I have received report from Lashell BUI and had the opportunity to ask questions and assume patient care.
[2021-01-26 07:51] LABS: BASOPHILS % (AUTO) 0.1 % (0-1); EOSINOPHILS % (AUTO) 0.2 % (0-6); HEMATOCRIT 42.7 % (42.0-52.0); HEMOGLOBIN 14.3 g/dl (14.0-17.9); LYMPHOCYTES # (AUTO) 0.7 X10'3 (1.1-4.8); LYMPHOCYTES % (AUTO) 6.4 % (21-51); MEAN CORPUSCULAR HEMOGLOBIN 30.3 PG (27.0-31.0); MEAN CORPUSCULAR HGB CONC 33.5 g/dL (33.0-36.5); MEAN CORPUSCULAR VOLUME 90.6 FL (78-98); MEAN PLATELET VOLUME 7.6 FL (7.4-10.4); MONOCYTES # (AUTO) 0.8 X10'3 (0-0.9); MONOCYTES % (AUTO) 7.6 % (2-12); NEUTROPHILS # (AUTO) 9.4 X10'3 (1.8-7.7); NEUTROPHILS % (AUTO) 85.7 % (42-75); PLATELET COUNT 344 X10'3 (140-440); RED BLOOD COUNT 4.72 X10'6 (4.70-6.10)
[2021-01-26 08:10] LABS: D-DIMER 0.68 MG/L FEU (0-0.50)
[2021-01-26 08:18] LABS: ALANINE AMINOTRANSFERASE 73 U/L (12-78); ALBUMIN 2.6 G/DL (3.4-5.0); ALBUMIN/GLOBULIN RATIO 0.8 (1.1-1.5); ALKALINE PHOSPHATASE 80 IU/L (46-116); ANION GAP 2 (8-16); ASPARTATE AMINO TRANSFERASE 18 U/L (10-37); BILIRUBIN,TOTAL 0.7 MG/DL (0.1-1.0); BLOOD UREA NITROGEN 28 MG/DL (7-18); BUN/CREATININE RATIO 36.8 (5.4-32.0); C-REACTIVE PROTEIN 0.43 MG/DL (0.0-0.5); CALCIUM 8.1 MG/DL (8.5-10.1); CHLORIDE 103 MMOL/L (99-107); CREATININE 0.76 MG/DL (0.60-1.10); GLUCOSE 130 MG/DL (70-104); LACTATE DEHYDROGENASE 217 U/L (85-227); MAGNESIUM 1.8 MG/DL (1.5-2.4); PHOSPHORUS 3.8 MG/DL (2.3-4.5); POTASSIUM 4.9 MMOL/L (3.5-5.1); SODIUM 140 MMOL/L (135-145); TOTAL CARBON DIOXIDE 35.4 MMOL/L (24-32); TOTAL PROTEIN 5.8 G/DL (6.4-8.2); eGFR > 90 ML/MIN
[2021-01-26] MEDS: enoxaparin 40mg/0.4ml syringe SUBCUT SCH ×2 (08:44→18:44)
[2021-01-26] MEDS: carVEDilol 3.125mg tablet PO SCH ×2 (08:45→18:44)
[2021-01-26] MEDS: clopidogrel 75mg tablet PO SCH (08:45)
[2021-01-26] MEDS: methylPREDNISolone sod succ/PF 40mg inj. IV SCH ×2 (08:45→18:45)
[2021-01-26] MEDS: insulin Lispro (HumaLOG) vial - multi-dose SQ SCH ×4 (08:53→21:50)
--- NOTE | 2021-01-26 18:00 | NUR ---
Patient in room COVID 04. I have received report from teo BUI and had the opportunity to ask questions and assume patient care.
--- NOTE | 2021-01-26 18:25 | NUR ---
Problems reprioritized. Patient report given, questions answered & plan of care reviewed with Edith BUI.
[2021-01-26] MEDS: atorvastatin 20mg tablet PO SCH (18:43)
[2021-01-26] MEDS: insulin glargine (Lantus) pen - multi-dose SQ SCH (21:52)
--- NOTE | 2021-01-27 06:44 | NUR ---
Patient in room COVID 04. I have received report from Edith BUI and had the opportunity to ask questions and assume patient care.
[2021-01-27 07:00] VITALS: BP 125/91
[2021-01-27 09:04] LABS: BASOPHILS % (AUTO) 0.1 % (0-1); EOSINOPHILS % (AUTO) 0.3 % (0-6); HEMATOCRIT 44.2 % (42.0-52.0); HEMOGLOBIN 14.5 g/dl (14.0-17.9); MEAN CORPUSCULAR HEMOGLOBIN 30.3 PG (27.0-31.0); MEAN CORPUSCULAR HGB CONC 32.9 g/dL (33.0-36.5); MEAN CORPUSCULAR VOLUME 92.1 FL (78-98); MEAN PLATELET VOLUME 7.7 FL (7.4-10.4); MONOCYTES # (AUTO) 0.9 X10'3 (0-0.9); MONOCYTES % (AUTO) 8.4 % (2-12); NEUTROPHILS # (AUTO) 9.1 X10'3 (1.8-7.7); NEUTROPHILS % (AUTO) 82.2 % (42-75); PLATELET COUNT 321 X10'3 (140-440); RED CELL DISTRIBUTION WIDTH 14.7 % (11.5-14.5)
[2021-01-27] MEDS: methylPREDNISolone sod succ/PF 40mg inj. IV SCH ×2 (09:09→19:54)
[2021-01-27] MEDS: enoxaparin 40mg/0.4ml syringe SUBCUT SCH ×2 (09:09→20:02)
[2021-01-27] MEDS: clopidogrel 75mg tablet PO SCH ×2 (09:10→19:59)
[2021-01-27] MEDS: carVEDilol 3.125mg tablet PO SCH ×2 (09:10→19:59)
[2021-01-27] MEDS: insulin Lispro (HumaLOG) vial - multi-dose SQ SCH ×3 (09:19→19:50)
[2021-01-27 09:24] LABS: D-DIMER 0.61 MG/L FEU (0-0.50)
[2021-01-27 09:25] LABS: ANION GAP 4 (8-16); BLOOD UREA NITROGEN 25 MG/DL (7-18); BUN/CREATININE RATIO 32.5 (5.4-32.0); CHLORIDE 102 MMOL/L (99-107); CREATININE 0.77 MG/DL (0.60-1.10); GLUCOSE 194 MG/DL (70-104); POTASSIUM 4.6 MMOL/L (3.5-5.1); SODIUM 138 MMOL/L (135-145); TOTAL CARBON DIOXIDE 32.4 MMOL/L (24-32)
[2021-01-27 09:26] LABS: ALANINE AMINOTRANSFERASE 61 U/L (12-78); ALBUMIN 2.5 G/DL (3.4-5.0); ALBUMIN/GLOBULIN RATIO 0.8 (1.1-1.5); ALKALINE PHOSPHATASE 82 IU/L (46-116); ASPARTATE AMINO TRANSFERASE 16 U/L (10-37); BILIRUBIN,TOTAL 0.8 MG/DL (0.1-1.0); C-REACTIVE PROTEIN 0.15 MG/DL (0.0-0.5); CALCIUM 7.8 MG/DL (8.5-10.1); LACTATE DEHYDROGENASE 256 U/L (85-227); MAGNESIUM 1.8 MG/DL (1.5-2.4); PHOSPHORUS 3.7 MG/DL (2.3-4.5); TOTAL PROTEIN 5.8 G/DL (6.4-8.2); eGFR > 90 ML/MIN
[2021-01-27 10:00] VITALS: BP 111/67
[2021-01-27 15:00] VITALS: BP 114/68
--- NOTE | 2021-01-27 16:34 | NUR ---
Pt wanting to discharge home. Dr. Benítez Paged "PAGER ID: [phone] MESSAGE: RE: Ry Skaggs: LIAT RM 4B: Pt strongly wanting to discharge home. Pt 93% on 2LPM. Per Dr. Kahn "Let Dr. Benítez know i am completely on board with discharging him home" Thank You, -Katherine #[phone]"
[2021-01-27 18:00] VITALS: BP 126/68
--- NOTE | 2021-01-27 18:28 | NUR ---
Problems reprioritized. Patient report given, questions answered & plan of care reviewed with Milly BUI. Pt calm, no sob, supine with HOB high fowlers in bed. no s/sx acute distress. O2@2lpm/nc; SPO2 94%
[2021-01-27] MEDS: insulin glargine (Lantus) pen - multi-dose SQ SCH (21:00)
--- NOTE | 2021-01-27 21:00 | NUR ---
Patient refused blood sugar. Addendum: 01/28/21 at 0132 by Milly Walker RN Amended: Links added.
[2021-01-27 22:00] VITALS: BP 137/72
[2021-01-27] MEDS: atorvastatin 20mg tablet PO SCH (23:30)
--- NOTE | 2021-01-28 01:29 | NUR ---
Patient refused blood sugar check.
[2021-01-28 02:00] VITALS: BP 118/70
[2021-01-28 07:00] VITALS: BP 116/69
[2021-01-28] MEDS: methylPREDNISolone sod succ/PF 40mg inj. IV SCH (07:45)
[2021-01-28] MEDS: carVEDilol 3.125mg tablet PO SCH (07:45)
[2021-01-28] MEDS: enoxaparin 40mg/0.4ml syringe SUBCUT SCH (07:46)
[2021-01-28] MEDS: insulin Lispro (HumaLOG) vial - multi-dose SQ SCH (08:01)
[2021-01-28] MEDS ORDERED: ASPI-611 PO (09:19)
[2021-01-28] MEDS ORDERED: PRED10TA23 PO (09:19)
[2021-01-28] MEDS ORDERED: BENZ-16 PO (09:19)
[2021-01-28] MEDS ORDERED: ALBU8.5H17 INH (09:19)
--- NOTE | 2021-01-28 10:51 | NUR ---
O2 Sat at rest on room air:_87__% If below 89%: Recovery O2 Sat at rest on _2__LPM:_87__%:_92__% via nasal cannula (mask/nasal cannula, etc..) No further documentation is necessary. If O2 Sat did not drop below 89% on room air,ambulate patient on room air. O2 Sat while ambulating on room air:___% Recovery O2 Sat while ambulating on ___LPM:___% No further documentation is necessary. If patient does not drop below 89% while ambulating, he/she does not qualify for home O2.
--- NOTE | 2021-01-28 10:54 | NUR ---
Page to case management : Covid Room 4 Sharifa. Patient qualified for home 02. Wendy [phone]
[2021-01-28 11:00] VITALS: BP 121/76
--- NOTE | 2021-01-28 15:19 | NUR ---
Patient was DC to home. He was picked up by his . O2 and other belongings went with the patient. PIV was removed with cannula intact. DC instructions and warning s/s were reviewed with the patient and he verbalized understanding. Patient was alert, oriented, and appropriate at the time of DC.
== END 2021-01-28 14:30 | disposition home or self-care (01) | DRG 177 ==
LOC: ER 15:09 → ED HOLD 17:10 → COVID IP 01-18 12:00
PROVIDERS: ADMIT Internal Medicine; ATTEND Internal Medicine
PROC: 5A09357 Assistance with Respiratory Ventilation, Less than 24 Consecutive Hours, Continuous Positive Airway Pressure (ICD-10-PCS; 2021-01-16)
PROC: XW033E5 Introduction of Remdesivir Anti-infective into Peripheral Vein, Percutaneous Approach, New Technology Group 5 (ICD-10-PCS; principal; 2021-01-19)
PROC: 5A0935A Assistance with Respiratory Ventilation, Less than 24 Consecutive Hours, High Flow/Velocity Cannula (ICD-10-PCS; 2021-01-20)
PROC: 5A0935A Assistance with Respiratory Ventilation, Less than 24 Consecutive Hours, High Flow/Velocity Cannula (ICD-10-PCS; 2021-01-21)
PROC: 5A0935A Assistance with Respiratory Ventilation, Less than 24 Consecutive Hours, High Flow/Velocity Cannula (ICD-10-PCS; 2021-01-22)
PROC: 5A0945A Assistance with Respiratory Ventilation, 24-96 Consecutive Hours, High Flow/Velocity Cannula (ICD-10-PCS; 2021-01-23)
PROC: 5A0935A Assistance with Respiratory Ventilation, Less than 24 Consecutive Hours, High Flow/Velocity Cannula (ICD-10-PCS; 2021-01-27)
DX: U07.1 COVID-19 (principal); J12.82 Pneumonia due to coronavirus disease 2019; J96.01 Acute respiratory failure with hypoxia; J96.02 Acute respiratory failure with hypercapnia; J44.0 Chronic obstructive pulmonary disease with (acute) lower respiratory infection; J44.1 Chronic obstructive pulmonary disease with (acute) exacerbation; E87.2 Acidosis; E11.9 Type 2 diabetes mellitus without complications; E78.00 Pure hypercholesterolemia, unspecified; E78.5 Hyperlipidemia, unspecified; I10 Essential (primary) hypertension; I25.10 Atherosclerotic heart disease of native coronary artery without angina pectoris; I25.2 Old myocardial infarction; Z79.02 Long term (current) use of antithrombotics/antiplatelets; Z79.4 Long term (current) use of insulin; Z95.1 Presence of aortocoronary bypass graft; Z95.5 Presence of coronary angioplasty implant and graft; Z79.82 Long term (current) use of aspirin
CPT/HCPCS: 36415; 36600; 71045; 80048; 80053; 82803; 82948; 83036; 83615; 83735; 83880; 84100; 84145; 85018; 85025; 85379; 86140; 87635; 93005; 94640; 94660; 94760; 96365; 96367; 99291; C9803; G0378; J0456; J0696; J1100; J1650; J1815; J2920; J2930; J7030